=== PATIENT | male | born 1950 | race Caucasian/White ===

== ENCOUNTER 2020-05-15 18:56 | Emergency (ER) | payer MEDICARE ==
[2020-05-15] MEDS ORDERED: traMADol HCl 50 MG TAB ONE (19:23)
[2020-05-15] MEDS ORDERED: Ibuprofen 800 MG TAB ONE (19:23)
--- NOTE | 2020-05-15 23:13 | RAD ---
LEFT ANKLE 3 VIEWS: Date: 05/15/2020 No recent fracture was seen. On the AP view, there are a few calcifications or flecks of bone along t he lateral side of the tibial plafond. This likely is related to an old injury. The articular surface s of the talus seem smooth. A minimal calcaneal spur was noted. There are many arterial calcification s. IMPRESSION: Possible old injury at the tibiofibular articulation along the lateral aspect of the tibial plafond. No acute or obviously recent traumatic findings were seen. POS: HOME
== END 2020-05-15 19:30 | disposition home or self-care (01) ==
LOC: BURERS 18:56
DX: S93.402A Sprain of unspecified ligament of left ankle, initial encounter (principal); X50.0XXA Overexertion from strenuous movement or load, initial encounter

== ENCOUNTER 2022-06-23 10:40 | Outpatient (CLI) | payer MEDICARE | END 2022-06-23 10:41 | disposition home or self-care (01) | LOC: BURRAD 10:40 | PROVIDERS: ATTEND Nurse Practitioner Family | DX: M25.572 Pain in left ankle and joints of left foot (principal) ==

== ENCOUNTER 2022-12-09 13:16 | Outpatient (CLI) | payer MEDICARE | END 2022-12-09 13:17 | disposition home or self-care (01) | LOC: BURRAD 13:16 | PROVIDERS: ATTEND Nurse Practitioner Family | DX: M79.672 Pain in left foot (principal); M19.072 Primary osteoarthritis, left ankle and foot ==